=== PATIENT | female | born 1965 | race Caucasian/White ===

== ENCOUNTER 2022-02-01 10:52 | Emergency (ER) | payer OTHER ==
[2022-02-01 11:03] VITALS: BP 111/71; PULSE 90; TEMP 97.8
[2022-02-01] MEDS ORDERED: SODIUM CHLORIDE 0.9% 500 ML INFUS.BAG IV ONE (11:38)
[2022-02-01] MEDS ORDERED: ACETAMINOPHEN 1000 MG/100 ML BAG IVPB ONE (11:38)
[2022-02-01] MEDS ORDERED: ACETAMINOPHEN INJECTION 100 ML IVPB ONE (12:03)
[2022-02-01 12:58] LABS: BASO % 0.5 % (0-2.0); EOS % 0.6 % (0-4.5); HEMATOCRIT 41.2 % (32.4-45.2); HEMOGLOBIN 13.8 GM/dL (10.7-15.3); LYMPH % 28.3 % (8-40); MCH 27.7 pg (25.7-33.7); MCHC 33.6 g/dl (32.0-36.0); MEAN CELL VOLUME 82.3 fl (80-96); MEAN PLT VOLUME 7.3 fl (7.5-11.1); MONO % 5.7 % (3.8-10.2); NEUT % 64.9 % (42.8-82.8); PLATELET COUNT 302 10^3/uL (134-434); RDW 13.2 % (11.6-15.6); WHITE BLOOD COUNT 6.1 K/mm3 (4.0-10.0)
[2022-02-01 13:11] LABS: ALBUMIN 3.7 g/dl (3.4-5.0); BLOOD UREA NITROGEN 10.7 mg/dL (7-18); CALCIUM 9.4 mg/dL (8.5-10.1)
[2022-02-01 13:13] LABS: MAGNESIUM 2.1 mg/dL (1.8-2.4)
[2022-02-01 13:15] LABS: CREATININE 0.7 mg/dL (0.55-1.3)
[2022-02-01 13:16] LABS: BILIRUBIN,TOTAL 0.5 mg/dL (0.2-1); TOT PROT 7.3 g/dl (6.4-8.2)
[2022-02-01] MEDS ORDERED: LORazepam 2 MG/ML SDV VIAL IVPUSH ONE (13:40)
[2022-02-01] MEDS ORDERED: MECLIZINE HCL 25 MG TABLET (FP) PO ONE (13:50)
[2022-02-01] MEDS ORDERED: MECLIZINE HCL 25 MG TABLET (FP) ONE (13:57)
== END 2022-02-01 15:30 | disposition home or self-care (01) ==
LOC: JER 10:52
PROC: 3E0333Z Introduction of Anti-inflammatory into Peripheral Vein, Percutaneous Approach (ICD-10-PCS; principal; 2022-02-01)
PROC: 3E033NZ Introduction of Analgesics, Hypnotics, Sedatives into Peripheral Vein, Percutaneous Approach (ICD-10-PCS; 2022-02-01)
DX: R42 Dizziness and giddiness (principal)
CPT/HCPCS: 0241U-QW; 36415; 80053; 83735; 84443; 84484; 85025; 93005; 93010; 96374; 96375; 99284-25

== ENCOUNTER 2022-02-09 12:42 | Emergency (ER) | payer OTHER ==
[2022-02-09 13:05] VITALS: BP 121/74; PULSE 86; TEMP 97.3; BMI 39.0
[2022-02-09] MEDS ORDERED: SODIUM CHLORIDE 0.9% 500 ML INFUS.BAG IV ONE (13:40)
[2022-02-09] MEDS ORDERED: MECLIZINE HCL 25 MG TABLET (FP) PO ONE (13:40)
[2022-02-09] MEDS ORDERED: LORazepam 1 MG TABLET PO ONE (13:40)
[2022-02-09] MEDS ORDERED: MECLIZINE HCL 25 MG TABLET (FP) ONE (13:56)
[2022-02-09] MEDS ORDERED: LORazepam 1 MG TABLET ONE (13:56)
[2022-02-09 15:39] LABS: BASO % 0.7 % (0-2.0); EOS % 0.4 % (0-4.5); HEMATOCRIT 39.9 % (32.4-45.2); HEMOGLOBIN 13.2 GM/dL (10.7-15.3); LYMPH % 24.5 % (8-40); MCH 27.4 pg (25.7-33.7); MCHC 33.1 g/dl (32.0-36.0); MEAN CELL VOLUME 82.8 fl (80-96); MEAN PLT VOLUME 7.3 fl (7.5-11.1); MONO % 7.1 % (3.8-10.2); NEUT % 67.3 % (42.8-82.8); PLATELET COUNT 336 10^3/uL (134-434); RBC 4.82 M/mm3 (3.60-5.2); RDW 13.4 % (11.6-15.6); WHITE BLOOD COUNT 8.3 K/mm3 (4.0-10.0)
[2022-02-09 16:08] LABS: ALBUMIN 3.6 g/dl (3.4-5.0); BLOOD UREA NITROGEN 12.7 mg/dL (7-18)
[2022-02-09 16:11] LABS: BILIRUBIN,TOTAL 0.4 mg/dL (0.2-1); CREATININE 0.7 mg/dL (0.55-1.3); TOT PROT 7.2 g/dl (6.4-8.2)
[2022-02-09 17:00] LABS: URINE APPEARANCE CLEAR; URINE BILIRUBIN NEGATIVE (NEGATIVE); URINE COLOR YELLOW; URINE GLUCOSE (UA) NEGATIVE (NEGATIVE); URINE KETONE NEGATIVE (NEGATIVE); URINE LEUK ESTERASE NEGATIVE (NEGATIVE); URINE NITRITE NEGATIVE (NEGATIVE); URINE PROTEIN NEGATIVE (NEGATIVE); URINE UROBILINOGEN 0.2 mg/dL (0.2-1.0)
== END 2022-02-09 17:30 | disposition home or self-care (01) ==
LOC: JER 12:42
DX: R42 Dizziness and giddiness (principal)
CPT/HCPCS: 0241U-QW; 70450-TC; 71046-TC-FY; 80053; 81003; 84443; 84484; 85025; 87086; 93005; 93010; 99285-25